=== PATIENT | male | born 1985 | race Caucasian/White ===

== ENCOUNTER 2017-07-20 18:37 | Emergency (ER) | payer OTHER ==
[~2017-07-20] VITALS: Ht 182.9 cm; Wt 129.7 kg
--- NOTE | 2017-07-20 18:55 | NUR ---
Tetanus shot given at left deltoid- verbal consent given by patient with spouse signing the consent form. Patient is right hand dominant. MD is repairing the right hand laceration at this time.
--- NOTE | 2017-07-20 19:51 | NUR ---
Laceration repair done by Dr. Brady to R. thumb. Steri-strips applied to R. index finger lac. Syl applied. Pt stable for discharge per MD. Pt given ACI. Pt verbalized understanding of dc instructions. Pt ambulated out of ER with steady gait and ride home.
[2017-07-20 19:54] VITALS: BP 122/58
== END 2017-07-20 19:54 | disposition home or self-care (01) ==
LOC: ER 18:38
DX: S61.011A Laceration without foreign body of right thumb without damage to nail, initial encounter (principal); X99.8XXA Assault by other sharp object, initial encounter; Y93.G3 Activity, cooking and baking; Y92.090 Kitchen in other non-institutional residence as the place of occurrence of the external cause; Y99.8 Other external cause status
CPT/HCPCS: 90715; A4217; A4663

== ENCOUNTER 2017-07-25 11:22 | Emergency (ER) | payer OTHER ==
[~2017-07-25] VITALS: Ht 906.8 cm; Wt 83.9 kg
[2017-07-25] MEDS ORDERED: HYDROCODON-ACETAMINOPHN 10-325 (11:39)
--- NOTE | 2017-07-25 12:00 | NUR ---
PT WAS EVALUATED BY DR HAAS. PT WAS D/C TO HOME. D/C INSTRUCTIONS GIVEN TO THE PT.
[2017-07-25 12:03] VITALS: BP 141/81
== END 2017-07-25 12:06 | disposition home or self-care (01) ==
LOC: ER 11:22
DX: S61.012D Laceration without foreign body of left thumb without damage to nail, subsequent encounter (principal); X58.XXXD Exposure to other specified factors, subsequent encounter; Y92.9 Unspecified place or not applicable; Y99.9 Unspecified external cause status
CPT/HCPCS: A4663

== ENCOUNTER 2017-07-31 22:30 | Emergency (ER) | payer OTHER ==
[~2017-07-31] VITALS: Ht 182.9 cm; Wt 83.9 kg
[~2017-07-31 22:30] MED LIST: HYDROCODON-ACETAMINOPHN 10-325
--- NOTE | 2017-07-31 23:00 | NUR ---
RANDALD performed MSE, OK to remove stitches.
--- NOTE | 2017-07-31 23:09 | NUR ---
Patient discharged to home in stable conditon. Written and verbal after care instructions given. Patient verbalizes understanding of instructions.
== END 2017-07-31 23:11 | disposition home or self-care (01) ==
LOC: ER 22:30
DX: S61.011D Laceration without foreign body of right thumb without damage to nail, subsequent encounter (principal); X58.XXXD Exposure to other specified factors, subsequent encounter; Y92.9 Unspecified place or not applicable; Y99.9 Unspecified external cause status
CPT/HCPCS: A4663